=== PATIENT | female | born 1965 | race Caucasian/White ===

== ENCOUNTER → 2024-10-12 | Outpatient (CLI) | payer BC, SELFPAY ==
--- NOTE | 2024-10-12 10:15 | XR_ITS ---
Examination: Breast ultrasound, unilateral, right complete Date and time of exam: October 12, 2024 1024 hours INDICATIONS: Mammogram September 04, 2024 10 mm focal asymmetry upper outer right breast mid depth Technique: Real-time sy scale ultrasonographic imaging performed right breast including all 4 quadrants as well as nipple retroareolar and axillary region. Findings: No cystic or solid mass IMPRESSION: BI-RADS Category 1: Negative study
--- NOTE | 2024-10-12 10:45 | XR_ITS ---
Examination: Diagnostic digital mammography, unilateral, right Computer aided detection 3-D breast Tomosynthesis, unilateral Date and time of exam: October 12, 2024 1035 hours INDICATIONS: Mammogram September 04, 2024 focal asymmetry 10 mm upper outer right breast mid depth Technique: Nonmagnified MLO, CC views of the right breast have been obtained, reconstructed from 3-D Tomosynthesis images. R2 computer aided detection program utilized for evaluation of suspicious masses and/or abnormal calcifications. 3-D Tomosynthesis images obtained. Findings: Scattered areas of fibroglandular density Probably benign focal asymmetry is confirmed upper outer right breast Impression: BI-RADS category 3: Probably benign findings One additional 6 month right mammogram follow-up is needed
== END | disposition home or self-care (01) ==
PROVIDERS: PCP Nurse Practitioner Family; Referring Provider Nurse Practitioner Family; Visit Provider Nurse Practitioner Family
DX: R92.331 Mammographic heterogeneous density, right breast (principal); N64.89 Other specified disorders of breast
CPT/HCPCS: 76641; 77061; 77065; G0279

== ENCOUNTER 2025-01-29 09:25 | Day surgery (SDC) | payer BC, SELFPAY ==
--- NOTE | 2025-01-28 10:49 | EKG_ITS ---
[facility] Test Date: 2025-01-28 Pat Name: AN TORRES Department: Room: - Gender: Female [employer] Access Developer: ROQUE IZQUIERDO : 1965 Requested By: Ye Bella Order Number: [id number] Reading MD: Ye Bella Measurements Intervals Josephine Rate: 74 P: 58 WI: 147 QRS: 8 QRSD: 92 T: 30 QT: 362 QTc: 404 Interpretive Statements SINUS RHYTHM LOW QRS VOLTAGE IN PRECORDIAL LEADS [QRS DEFLECTION < 1.0 mV IN CHEST LEADS] POSSIBLE RIGHT VENTRICULAR CONDUCTION DELAY [RSR (QR) IN V1/V2] Compared to ECG 09/19/2020 14:13:02 Low QRS voltage now present Sinus bradycardia no longer present /store/S0/[id number]/[id number].pdf
[2025-01-28 11:05] LABS: INR 0.9 (0.9-1.3); Partial Thromboplastin Time 25.6 Seconds (22.0-36.0); Prothrombin Time 10.4 Seconds (9.0-12.2)
[2025-01-28 11:31] LABS: Alanine Aminotransferase 9 U/L (10-49); Albumin, Serum 4.1 gm/dL (3.5-5.0); Albumin/Globulin Ratio 1.5 (1.2-2.2); Alkaline Phosphatase 77 U/L (46-116); Anion Gap 7 (7-16); Aspartate Amino Transferase 16 U/L (0-34); BUN/Creatinine Ratio 18 Ratio (12-20); Bilirubin,Total 0.4 mg/dL (0.3-1.2); Blood Urea Nitrogen 14 mg/dL (9-23); Carbon Dioxide 27.6 mMol/L (20.0-31.0); Chloride 107 mMol/L (98-107); Creatinine (Component) 0.8 mg/dL (0.6-1.3); Globulin 2.8 gm/dL (2.3-3.5); Glucose 72 mg/dL (74-106); Osmolality,Calculated 282 (275-295); Potassium 4.5 mMol/L (3.4-5.1); Sodium 142 mMol/L (136-145); Total Protein 6.9 gm/dL (5.7-8.2); eGFR > 60 See Note
[2025-01-28 14:47] VITALS: BMI 26.9
[2025-01-29 09:56] VITALS: BP 110/65; PULSE 76; RESP 14; TEMP 36.2; O2SAT 99; BMI 27.7
[2025-01-29] MEDS: SODIUM CHLORIDE 0.9% 500 ML 500 ML 20 ML IV (11:27)
[2025-01-29 11:46] VITALS: BP 116/73; PULSE 76; RESP 18; TEMP 36.4; O2SAT 96
[2025-01-29 11:56] VITALS: BP 121/82; PULSE 75; RESP 20; O2SAT 95
[2025-01-29 12:04] VITALS: BP 126/81; PULSE 75; RESP 20; O2SAT 95
[2025-01-29 12:14] VITALS: BP 119/80; PULSE 74; RESP 20; TEMP 36.4; O2SAT 95
== END 2025-01-29 12:18 | disposition home or self-care (01) ==
PROVIDERS: PCP Nurse Practitioner Family; Referring Provider Specialist; Visit Provider Specialist
PROC: (CPT 43239; principal; 2025-01-29 10:15)
DX: K20.90 Esophagitis, unspecified without bleeding (principal); Z01.818 Encounter for other preprocedural examination; Z98.0 Intestinal bypass and anastomosis status; K44.9 Diaphragmatic hernia without obstruction or gangrene; K31.89 Other diseases of stomach and duodenum
CPT/HCPCS: 43239; 36415; 80053; 85610; 85730; 93005; A4649; J7040

== ENCOUNTER → 2025-05-24 | Outpatient (CLI) | payer BC, SELFPAY ==
--- NOTE | 2025-05-24 11:00 | XR_ITS ---
Examination: Diagnostic digital mammography, unilateral, right Computer aided detection 3-D breast Tomosynthesis, unilateral Date and time of exam: May 24, 2025 1042 hours INDICATIONS: 10 mm focal asymmetry upper outer right breast mid depth on mammogram September 04, 2024 Technique: Nonmagnified MLO, CC views of the right breast have been obtained, reconstructed from 3-D Tomosynthesis images. R2 computer aided detection program utilized for evaluation of suspicious masses and/or abnormal calcifications. 3-D Tomosynthesis images obtained. Findings: Focal asymmetry remains upper right breast on the MLO view, 13 mm and focal asymmetry 10 mm inner right breast on the CC view anterior depth Impression: BI-RADS category 0: Incomplete: Need additional imaging evaluation Right breast follow-up sonography is needed to assess focal asymmetries described above
== END | disposition home or self-care (01) ==
PROVIDERS: PCP Nurse Practitioner Family; Referring Provider Nurse Practitioner Family; Visit Provider Nurse Practitioner Family
DX: R92.321 Mammographic fibroglandular density, right breast (principal); R92.8 Other abnormal and inconclusive findings on diagnostic imaging of breast
CPT/HCPCS: 77061; 77065; G0279

== ENCOUNTER → 2025-07-16 | Outpatient (CLI) | payer BC, SELFPAY ==
--- NOTE | 2025-07-16 14:00 | XR_ITS ---
Examination: Breast ultrasound, unilateral, right Date and time of exam: July 16, 2025 1334 hours INDICATIONS: Mammogram May 24, 2025 focal asymmetry upper right breast 13 mm and 10 mm focal asymmetry inner right breast on the CC view Technique: Real-time sy scale ultrasonographic imaging performed right breast including all 4 quadrants as well as nipple retroareolar and axillary region. Findings: No cystic or solid mass IMPRESSION: BI-RADS Category 1: Negative study
== END | disposition home or self-care (01) ==
LOC: CDIM 13:10
PROVIDERS: PCP Nurse Practitioner Family; Referring Provider Nurse Practitioner Family; Visit Provider Nurse Practitioner Family
DX: N63.10 Unspecified lump in the right breast, unspecified quadrant (principal)
CPT/HCPCS: 76641